=== PATIENT | female | born 1980 | race Caucasian/White ===

== ENCOUNTER 2021-03-30 09:02 | Outpatient (CLI) | payer BC, MEDICAID, SELFPAY ==
--- NOTE | ~2021-03-30 | US_ITS ---
EXAMINATION: US pelvic complete w TV DATE: 03/30/2021 09:42 INDICATION: Hypertrophy of the uterus TECHNIQUE: Multiple transabdominal and endovaginal sonographic images of the pelvis were obtained. COMPARISON: None. FINDINGS: The uterus measures 8.9 x 5.1 x 5.4 cm. The endometrial complex measures 13 mm. The ovaries are not visualized however no adnexal abnormality is seen. There is no free fluid in the pelvis. IMPRESSION: 1. Unremarkable pelvic ultrasound. Reviewed, dictated and finalized at location A.
[2021-03-30 11:09] LABS: HIV 1/2 Ab P24 Ag Result Negative (Negative)
[2021-03-30 12:09] LABS: Hepatitis B Surface Antigen Negative (Negative)
[2021-03-30 12:27] LABS: Hepatitis C Virus Antibody Negative (Negative)
[2021-03-31 09:47] LABS: Rapid Plasma Reagin Non-Reactive (NonReactive)
[2021-04-01 08:07] LABS: FSH 4.9 mIU/mL (***); LH 2.8 mIU/mL (***); Progesterone 1.4 ng/mL (***)
[2021-04-06 11:48] LABS: HSV 1 IgM Screen Negative (Negative); HSV 2 IgM Screen Negative (Negative)
== END 2021-03-30 09:03 | disposition home or self-care (01) ==
LOC: ANHIMG 09:06
PROVIDERS: Visit Provider Obstetrics & Gynecology
DX: N93.9 Abnormal uterine and vaginal bleeding, unspecified (principal); N85.2 Hypertrophy of uterus; Z11.4 Encounter for screening for human immunodeficiency virus [HIV]
CPT/HCPCS: 36415; 76830; 76856; 83001; 83002; 84144; 84443; 86592; 86695; 86696; 86703; 86803; 87340; G0432

== ENCOUNTER 2022-01-20 11:11 | Outpatient (CLI) | payer OTHER, MEDICAID, SELFPAY ==
--- NOTE | ~2022-01-20 | MM_ITS ---
EXAMINATION: MM screening piyush BI w suzan HISTORY: Screening TECHNIQUE: Craniocaudal and mediolateral oblique 3-D tomosynthesis images were obtained and synthetic 2-D images were generated. CAD analysis was submitted and interpreted. COMPARISON: No prior mammogram is available for comparison at this institution. BREAST PARENCHYMAL COMPOSITION: The breasts are almost entirely fatty. FINDINGS: There is no evidence of suspicious mass, calcification, or architectural distortion to sugg est malignancy in either breast. There has been no suspicious interval change. IMPRESSION: 1. No mammographic evidence of malignancy. 2. Recommend routine screening mammography in one year. BI-RADS Category 1: Negative Reviewed, dictated and finalized at location A.
== END 2022-01-20 11:12 | disposition home or self-care (01) ==
PROVIDERS: Visit Provider Obstetrics & Gynecology
DX: Z12.31 Encounter for screening mammogram for malignant neoplasm of breast (principal)
CPT/HCPCS: 77063; 77067

== ENCOUNTER 2023-11-23 14:55 | Emergency (ER) | payer OTHER, SELFPAY ==
--- NOTE | 2023-11-23 14:58 | ED.EAR ---
HPI - Ear Problem General Chief complaint: Ear Stated complaint: Lt Eat Irritation Time Seen by Provider: 11/23/23 15:10 Source: patient, RN notes reviewed and old records reviewed Mode of arrival: ambulatory Limitations: no limitations History of Present Illness HPI Narrative: 43-year-old female presents to the [facility] with increasing left ear pain for couple days. States that she has been having allergy issues, sinus 2 weeks. Denies any fevers. States that she has taking allergy medication Related Data Home Medications Medication Instructions Recorded Confirmed hydroxyzine HCl 25 mg tablet 25 mg PO BID PRN 05/29/22 05/29/22 lamotrigine 25 mg tablet 25 mg PO DAILY 05/29/22 05/29/22 amlodipine 5 mg tablet mg 11/23/23 11/23/23 bupropion HCl 150 mg 24 hr tablet, mg PO 11/23/23 11/23/23 extended release Allergies Allergy/AdvReac Type Severity Reaction Status Date / Time hydrocodone Allergy Severe Dyspnea / Verified 11/23/23 15:14 SOB Sulfa (Sulfonamide Allergy Mild Rash Verified 11/23/23 15:14 Antibiotics) clindamycin Allergy Itching Verified 11/23/23 15:14 Review of Systems Review of Systems: All systems reviewed & are unremarkable except as noted in HPI and below Constitutional: Constitutional: Reports no additional constitutional complaints Eyes: Eyes: Reports no additional eye complaints ENT: Reports as per HPI, Reports otalgia and Reports nasal congestion Cardiovascular: Cardiovascular: Reports no additional cardiovascular complaints, Denies chest pain and Denies dyspnea Respiratory: Respiratory: Reports no additional respiratory complaints, Denies chest congestion, Denies cough and Denies dyspnea Gastrointestinal: Gastrointestinal: Reports no additional gastrointestinal complaints, Denies abdominal pain, Denies nausea and Denies vomiting Musculoskeletal: Musculoskeletal: Reports no additional musculoskeletal complaints Integumentary/Breasts: Skin/Breast: Reports system reviewed and no additional complaints, except as docu Neurologic: Reports system reviewed and no additional complaints, except as documented Psychiatric: Psychiatric: Reports no additional psychiatric complaints Allergic/Immunologic: Allergic/Immunologic: Reports no additional allergic/immunologic complaints PMFSH Past Medical History Medical History Depression HPV in female Surgical History Surgical History deliv NOS-unsp x3 History of tubal ligation Hx of tonsillectomy S/P hernia repair Family History Family History Grandparent Hypertension Diabetes mellitus Mother Diabetes mellitus Hypertension Hypercholesterolemia Other Family history of allergic disorder Family history of cardiovascular disease Family history of malignant neoplasm Family history of malignant neoplasm of male breast Social History Social History Smoking status: Never smoker Second hand tobacco smoke exposure: No Alcohol intake: current Comments At the time of my signature, I reviewed and agree with the nursing past medical, surgical, social, and family history. There is no relevant family history pertinent to the patient complaint. Exam Const: General: cooperative, healthy appearing, comfortable, no acute distress, well developed, alert and well nourished Nutritional Appearance: well nourished and obese Orientation/consciousness: patient oriented x3 Limitations: no limitations HENMT: Head: normal to inspection Ears: hearing grossly normal bilaterally, external ears normal, EAC's normal and TM abnormal bulging on the left and erythematous bilateral Face/Nose/Sinus: Normal external nose present, Normal nares present, Normal nasal mucous membranes and turbinates present, normal facial exam
[2023-11-23 15:06] VITALS: BP 145/81; PULSE 80; RESP 18; TEMP 36.3; O2SAT 100
== END 2023-11-23 15:32 | disposition home or self-care (01) ==
PROVIDERS: Emergency Provider Nurse Practitioner; PCP Family Medicine
DX: H66.92 Otitis media, unspecified, left ear (principal); F32.A Depression, unspecified
CPT/HCPCS: 99213; G0463

== ENCOUNTER 2024-02-05 10:38 | Outpatient (CLI) | payer OTHER, SELFPAY ==
--- NOTE | ~2024-02-05 | MMUS_ITS ---
EXAMINATION: MM diagnostic piyush BI w suzan, US breast BI limited HISTORY: Palpable breast abnormalities TECHNIQUE: Additional 3-D tomosynthesis images of the breasts were performed and synthetic 2-D images were generated. CAD analysis was submitted and interpreted. High resolution Limited bilateral breast ultrasound was performed. COMPARISON: 01/20/2022 BREAST PARENCHYMAL COMPOSITION: Not Dense: Breast are almost entirely fatty. FINDINGS: MAMMOGRAPHIC FINDINGS: There are no suspicious masses, calcifications or architectural distortion in the breast to suggest m alignancy. ULTRASOUND: Limited bilateral breast ultrasound: Normal heterogeneous echotexture without focal solid or cystic mass. IMPRESSION: 1. No evidence for malignancy in either breast. 2. Routine yearly screening mammogram and regular clinical breast examination are recommended. BI-RADS Category 1: Negative Reviewed, dictated and finalized at location B. IMPRESSION: 1. No evidence for malignancy in either breast. 2. Routine yearly screening mammogram and regular clinical breast examination a re recommended. BI-RADS Category 1: Negative
== END 2024-02-05 10:39 | disposition home or self-care (01) ==
LOC: ANHIMG 10:41
PROVIDERS: PCP Family Medicine; Visit Provider Nurse Practitioner Obstetrics & Gynecology
DX: N63.13 Unspecified lump in the right breast, lower outer quadrant (principal)
CPT/HCPCS: 76642; 77062; 77066; G0279